=== PATIENT | female | born 1960 | race Caucasian/White ===

== ENCOUNTER 2016-02-10 11:19 | Inpatient (IN) | payer BC ==
[2016-02-10] MEDS ORDERED: IBUPROFEN 600 MG TABLET PO ONE (11:58)
[2016-02-10] MEDS ORDERED: IPRATROPIUM/ALBUTEROL 0.5-2.5 MG/3 ML AMPUL NEB ONE (11:59)
--- NOTE | 2016-02-10 12:00 | ER Document Report ---
ED Medical Screen (RME) - General Chief Complaint: Diarrhea Stated Complaint: POSSIBLE PNEUMONIA Mode of Arrival: Ambulatory Information source: Patient Notes: Patient was referred by urgent care Wednesday and was told to come here today for possible admission. She states she had a temp of 104 orally Wednesday and Wednesday with associated cough, chest tightness, difficulty breathing, headache, diarrhea with incontinence but no nausea or vomiting. She also endorses having GI bug that lasted 2 days prior to this. She has taken prednisone, augmentin, motrin (last dose was last night). The diarrhea was present before taking the augmentin. She did get the flu shot. TRAVEL OUTSIDE OF THE [place] IN LAST 30 DAYS: No - Related Data Allergies/Adverse Reactions: No Known Allergies Allergy (Verified 02/10/16 11:47) Past Medical History - Past Medical History Cardiac Medical History: Reports: Hx Hypertension Pulmonary Medical History: Reports: Hx Asthma Endocrine Medical History: Reports: Hx Diabetes Mellitus Type 2 - Immunizations Immunizations up to date: Yes Review of Systems - Review of Systems Constitutional: See HPI Cardiovascular: See HPI Respiratory: See HPI Gastrointestinal: See HPI Physical Exam - Vital signs Vitals: Temp Pulse Resp BP Pulse Ox 98.4 F 105 H 30 H 139/81 H 95 02/10/16 11:47 02/10/16 11:47 02/10/16 11:47 02/10/16 11:47 02/10/16 11:47 - Notes Notes: General: Ill-appearing, mild tachycardia (105), afebrile, tachypneic (30) CV: tacycardic rate Lungs: Coarse breathing sounds throughout, right worse than left. Course - Re-evaluation Re-evalutation: 02/10/16 12:01 Patient seen and examined. Lungs with coarse breath sounds, rhonchi greater on the right. Ordered motrin, duo neb and lab work/CXR/EKG. - Vital Signs Vital signs: Temp Pulse Resp BP Pulse Ox 98.4 F 105 H 30 H 139/81 H 95 02/10/16 11:47 02/10/16 11:47 02/10/16 11:47 02/10/16 11:47 02/10/16 11:47
[2016-02-10 12:40] LABS: ABSOLUTE LYMPHOCYTES (AUTO) 0.8 10^3/uL (0.5-4.7); ABSOLUTE MONOCYTES (AUTO) 0.5 10^3/uL (0.1-1.4); ABSOLUTE NEUT (AUTO) 3.9 10^3/uL (1.7-8.2); BASOPHILS % (AUTO) 0.5 % (0-2); EOSINOPHILS % (AUTO) 0.2 % (0-6); HEMATOCRIT 36.6 % (36.0-47.0); HEMOGLOBIN 12.4 g/dL (12.0-15.5); HGB HCT DIFFERENCE 0.6; LYMPHOCYTES % (AUTO) 15.7 % (13-45); MEAN CORPUSCULAR HEMOGLOBIN 30.3 pg (27.0-33.4); MEAN CORPUSCULAR HGB CONC 33.9 g/dL (32.0-36.0); MEAN CORPUSCULAR VOLUME 89 fl (80-97); MONOCYTES % (AUTO) 9.2 % (3-13); RED CELL DISTRIBUTION WIDTH 13.2 % (11.5-14.0); SEGMENTED NEUTROPHILS % (AUTO) 74.4 % (42-78); WHITE BLOOD COUNT 5.2 10^3/uL (4.0-10.5)
[2016-02-10 12:59] LABS: ALANINE AMINOTRANSFERASE 97 U/L (9-52); ALBUMIN 3.2 g/dL (3.5-5.0); ALKALINE PHOSPHATASE 109 U/L (38-126); ANION GAP 12 (5-19); ASPARTATE AMINO TRANSFERASE 136 U/L (14-36); BILIRUBIN,TOTAL 0.7 mg/dL (0.2-1.3); BLOOD UREA NITROGEN 3 mg/dL (7-20); CALCIUM 8.9 mg/dL (8.4-10.2); CARBON DIOXIDE 28 mmol/L (22-30); CHLORIDE 102 mmol/L (98-107); CREATININE RESULT 0.44 mg/dL (0.52-1.25); GLUCOSE 161 mg/dL (75-110); LIPASE 104.7 U/L (23-300); POTASSIUM 3.6 mmol/L (3.6-5.0); SODIUM 141.8 mmol/L (137-145); TOTAL PROTEIN 6.7 g/dL (6.3-8.2)
[2016-02-10 13:41] LABS: APPEARANCE,URINE CLEAR; BILIRUBIN,URINE NEGATIVE (NEGATIVE); GLUCOSE, URINE NEGATIVE (NEGATIVE); KETONES,URINE NEGATIVE (NEGATIVE); LEUKOCYTE ESTERASE,URINE NEGATIVE (NEGATIVE); NITRITE,URINE NEGATIVE (NEGATIVE); PROTEIN,URINE NEGATIVE (NEGATIVE); URINE SPECIFIC GRAVITY 1.004; UROBILINOGEN,URINE NEGATIVE mg/dL (<2.0)
--- NOTE | 2016-02-10 15:15 | ER Document Report ---
ED Respiratory Problem <MANNIE CARLSON - Last Filed: 02/10/16 15:19> - General Mode of Arrival: Ambulatory Information source: Patient TRAVEL OUTSIDE OF THE [place] IN LAST 30 DAYS: No - HPI Onset: Other - see above Cough: Productive Sputum amount: Moderate Associated symptoms: Fever, Other - vomiting, diarrhea Similar symptoms previously: Yes Recently seen / treated by doctor: Yes <CARMELITA GIL - Last Filed: 02/10/16 17:01> - General Chief Complaint: Diarrhea Stated Complaint: POSSIBLE PNEUMONIA Notes: Patient is a 55 year old female that presents to the emergency department today with complaints of a cough of a 2.5 week duration. Patient states she was seen four days ago by her PCP (Dr. Kevin Pfeiffer) and was diagnosed with a right sided pneumonia and started on augmentin and prednisone. Patient states she has had 6 doses of augmentin prior to today. Patient states she was re-checked today and was told to come here secondary to worsening pneumonia. Patient has been febrile. (CARMELITA GIL) - Related Data Allergies/Adverse Reactions: No Known Allergies Allergy (Verified 02/10/16 11:47) Home Medications: Current Home Medications Glimepiride [Amaryl 4 mg Tablet] 1 tab PO DAILY 02/10/16 [History] Metformin HCl 1 tab PO BID 02/10/16 [History] Montelukast Sodium 1 tab PO DAILY 02/10/16 [History] Past Medical History - General Information source: Patient Last Menstrual Period: 2012 - Social History Smoking Status: Never Smoker Cigarette use (# per day): No Frequency of alcohol use: Rare Drug Abuse: None Lives with: Family Family History: Reviewed & Not Pertinent Patient has suicidal ideation: No Patient has homicidal ideation: No - Past Medical History Cardiac Medical History: Reports: Hx Hypertension Pulmonary Medical History: Reports: Hx Asthma Endocrine Medical History: Reports: Hx Diabetes Mellitus Type 2 Past Surgical History: Reports: Hx Oral Surgery - Immunizations Immunizations up to date: Yes Hx Diphtheria, Pertussis, Tetanus Vaccination: Yes <CARMELITA GIL - Last Filed: 02/10/16 17:01> Review of Systems - Review of Systems Constitutional: See HPI, Fever EENT: No symptoms reported Cardiovascular: No symptoms reported Respiratory: See HPI, Cough Gastrointestinal: See HPI, Diarrhea, Vomiting Genitourinary: No symptoms reported Female Genitourinary: No symptoms reported Musculoskeletal: No symptoms reported Skin: No symptoms reported Hematologic/Lymphatic: No symptoms reported Neurological/Psychological: No symptoms reported -: Yes All other systems reviewed and negative <CARMELITA GIL - Last Filed: 02/10/16 17:01> Physical Exam - General General appearance: Alert In distress: None - HEENT Head: Normocephalic, Atraumatic Eyes: Normal - Respiratory Respiratory status: No respiratory distress Breath sounds: Wheezing - diffuse expiratory wheeze, tight throughout - Cardiovascular Rhythm: Tachycardia Heart sounds: Normal auscultation - Abdominal Inspection: Obese Distension: No distension Tenderness: Nontender - Extremities General upper extremity: Normal inspection, Nontender. No: Edema General lower extremity: Normal inspection, Nontender. No: Edema - Neurological Neuro grossly intact: Yes Cognition: Normal Orientation: AAOx4 - Psychological Associated symptoms: Normal affect, Normal mood - Skin Skin Temperature: Warm Skin Moisture: Dry Skin Color: Normal <CARMELITA GIL - Last Filed: 02/10/16 17:01> - Vital signs Vitals: Temp Pulse Resp BP Pulse Ox 98.4 F 105 H 30 H 139/81 H 95 02/10/16 11:47 02/10/16 11:47 02/10/16 11:47 02/10/16 11:47 02/10/16 11:47 (MANNIE CARLSON) (CARMELITA GIL) Course - Laboratory Result Diagrams: 02/10/16 12:15 02/10/16 12:15 <MANNIE CARLSON - Last Filed: 02/10/16 15:19> - Laboratory Result Diagrams: 02/10/16 12:15 02/10/16 12:15 <CARMELITA GIL - Last Filed: 02/10/16 17:01> - Re-evaluation Re-evalutation: 02/10/16 15:17 I personally performed the services described in the documentation, reviewed and edited the documentation which was dictated to my scribe in my presence, and it accurately records my words and actions. Patient presents emergency Department chief complaint of cough difficulty breathing. Patient has a history of asthma was diagnosed on Wednesday by her primary care physician with pneumonia without a chest x-ray and placed on Augmentin. Follow-up in the family practice office today worse low oxygen increased wheezing and trouble breathing was sent to the ER for evaluation and possible admission on ED arrival patient was 94% on room air expiratory wheezes no respiratory distress or conversational dyspnea chest x-ray shows bilateral pneumonia. Given Rocephin and Zithromax IV blood cultures were obtained. Breathing treatment you be admitted to the hospital further assessment and evaluation (MANNIE CARLSON) - Vital Signs Vital signs: Temp Pulse Resp BP Pulse Ox 98.0 F 88 20 118/76 94 02/10/16 16:42 02/10/16 16:42 02/10/16 16:42 02/10/16 16:42 02/10/16 16:42 (MANNIE CARLSON) (CARMELITA GIL) - Laboratory Laboratory results interpreted by me: 02/10/16 02/10/16 12:15 12:15 Plt Count 130 L BUN 3 L Creatinine 0.44 L Glucose 161 H AST 136 H ALT 97 H Albumin 3.2 L (MANNIE CARLSON) (CARMELITA GIL) Scribe Documentation - Scribe Written by Delroy:: Delroy Jang, [id number] (02/10/2016) acting as scribe for :: Pj <CARMELITA GIL - Last Filed: 02/10/16 17:01>
[2016-02-10] MEDS ORDERED: CEFTRIAXONE INJ 1000 MG VIAL IV ONE (15:18)
[2016-02-10] MEDS ORDERED: AZITHROMYCIN INJ 500 MG VIAL IV ONE (15:18)
[2016-02-10] MEDS ORDERED: DEXTROSE 50%-WATER 25 GM/50 ML DISP.SYRIN IV PRN ×2 (15:21)
[2016-02-10] MEDS ORDERED: DEXTROSE 40% GEL 15 GM TUBE PO PRN ×2 (15:21)
[2016-02-10] MEDS ORDERED: GLUCAGON,HUMAN RECOMB 1 MG INJ IM PRN (15:21)
[2016-02-10] MEDS ORDERED: POTASSI CL 20 MEQ/1/2NS 1L 1,000 ML IV PRN (15:22)
--- NOTE | 2016-02-10 15:52 | PDOC H&P ---
History of Present Illness Admission Date/PCP: KEVIN FARFAN Patient complains of: Cough, fever History of Present Illness: LEIGHTON Levin CASE is a 55 year old female with past medical history of asthma, diabetes presents with 3 day history of cough, fever, shortness of breath. She gastrointestinal symptoms prior to onset of them. She was seen by Dr. Kevin Farfan 3 days ago and started on Augmentin and prednisone taper but has had no relief of her symptoms. She has had the flu vaccine this year. Medications listed below have not been verified at the time of this documentation. Patient has medications with her and takes: 1. Metformin 500 mg twice daily 2. glimepiride 4 mg daily 3. Singulair 10 mg daily Past Medical History Cardiac Medical History: Reports: Hypertension Pulmonary Medical History: Reports: Asthma Endocrine Medical History: Reports: Diabetes Mellitus Type 2 Past Surgical History Past Surgical History: Reports: Other - Oral surgery, Esure contraceptive device Social History Information Source: Patient Smoking Status: Never Smoker Frequency of Alcohol Use: None Hx Recreational Drug Use: No Hx Prescription Drug Abuse: No - Advance Directive Resuscitation Status: Full Code Family History Family History: CAD - Mother Parental Family History Reviewed: Yes Children Family History Reviewed: Yes Sibling(s) Family History Reviewed.: Yes Medication/Allergy Home Medications: Oxycodone HCl 5 mg PO Q6H #15 tablet 09/06/12 Albuterol Sulfate [Albuterol Sulfate 2.5mg/3 mL] 1 vial IH Q4 PRN #25 vial 12/17 Benzonatate [Tessalon Perles 100 mg Capsule] 100 mg PO Q8HP PRN #40 capsule 10/24 Allergies/Adverse Reactions: No Known Allergies Allergy (Verified 02/10/16 11:47) Review of Systems Constitutional: PRESENT: chills, fatigue, fever(s), weakness. ABSENT: headache( s), weight gain, weight loss Eyes: ABSENT: visual disturbances Ears: ABSENT: hearing changes Cardiovascular: PRESENT: dyspnea on exertion. ABSENT: chest pain, edema, orthropnea, palpitations Respiratory: PRESENT: cough, dyspnea, sputum. ABSENT: hemoptysis Gastrointestinal: ABSENT: abdominal pain, constipation, diarrhea, hematemesis, hematochezia, nausea, vomiting Genitourinary: ABSENT: dysuria, hematuria Musculoskeletal: ABSENT: joint swelling Integumentary: ABSENT: rash, wounds Neurological: ABSENT: abnormal gait, abnormal speech, confusion, dizziness, focal weakness, syncope Psychiatric: ABSENT: anxiety, depression, homidical ideation, suicidal ideation Endocrine: ABSENT: cold intolerance, heat intolerance, polydipsia, polyuria Hematologic/Lymphatic: ABSENT: easy bleeding, easy bruising Physical Exam Vital Signs: Temp Pulse Resp BP Pulse Ox 98.4 F 105 H 30 H 139/81 H 95 02/10/16 11:47 02/10/16 11:47 02/10/16 11:47 02/10/16 11:47 02/10/16 11:47 Intake & Output 02/09/16 02/10/16 02/11/16 06:59 06:59 06:59 Weight 101.5 kg PHYSICAL EXAM: GENERAL: Appears well, no acute distress HEENT: Normocephalic, no scleral icterus, conjunctiva clear, EOEM intact, PERRLA , moist mucous membranes NECK: trachea midline, no thyromegally RESPIRATORY: Bilateral anterior rhonchi, good air movement CARDIAC: Regular rate and rhythm, no murmur/cornelius/rub ABDOMEN: Soft, no distension, no tenderness, no guarding, normal bowel sounds, negative Mittal sign RECTAL: deferred : deferred EXTREMITIES: No edema, cyanosis, clubbing MUSCULOSKELETAL: No joint swelling or deformity VASCULAR: normal peripheral pulses NEUROLOGIC: Alert, oriented to person/place/time, normal speech, cranial nerves grossly intact, 5/5 strength in all extremities, tactile sensation intact in all extremities SKIN: No rash, no wounds, no worrisome skin lesions PSYCHIATRIC: Normal mood, normal affect Results Laboratory Results: 02/10/16 12:15 02/10/16 12:15 02/10/16 02/10/16 02/10/16 12:15 12:15 12:15 WBC 5.2 RBC 4.10 Hgb 12.4 Hct 36.6 MCV 89 MCH 30.3 MCHC 33.9 RDW 13.2 Plt Count 130 L Seg Neutrophils % 74.4 Lymphocytes % 15.7 Monocytes % 9.2 Eosinophils % 0.2 Basophils % 0.5 Absolute Neutrophils 3.9 Absolute Lymphocytes 0.8 Absolute Monocytes 0.5 Absolute Eosinophils 0.0 Absolute Basophils 0.0 Sodium 141.8 Potassium 3.6 Chloride 102 Carbon Dioxide 28 Anion Gap 12 BUN 3 L Creatinine 0.44 L Est GFR ( Amer) > 60 Est GFR (Non-Af Amer) > 60 Glucose 161 H Lactic Acid 2.0 Calcium 8.9 Total Bilirubin 0.7 AST 136 H ALT 97 H Alkaline Phosphatase 109 Total Protein 6.7 Albumin 3.2 L Lipase 104.7 Urine Color Urine Appearance Urine pH Ur Specific [place] Urine Protein Urine Glucose (UA) Urine Ketones Urine Blood Urine Nitrite Ur Leukocyte Esterase Urine RBC (Auto) 02/10/16 13:25 WBC RBC Hgb Hct MCV MCH MCHC RDW Plt Count Seg Neutrophils % Lymphocytes % Monocytes % Eosinophils % Basophils % Absolute Neutrophils Absolute Lymphocytes Absolute Monocytes Absolute Eosinophils Absolute Basophils Sodium Potassium Chloride Carbon Dioxide Anion Gap BUN Creatinine Est GFR ( Amer) Est GFR (Non-Af Amer) Glucose Lactic Acid Calcium Total Bilirubin AST ALT Alkaline Phosphatase Total Protein Albumin Lipase Urine Color STRAW Urine Appearance CLEAR Urine pH 7.0 Ur Specific [place] 1.004 Urine Protein NEGATIVE Urine Glucose (UA) NEGATIVE Urine Ketones NEGATIVE Urine Blood NEGATIVE Urine Nitrite NEGATIVE Ur Leukocyte Esterase NEGATIVE Urine RBC (Auto) 0 Impressions: Chest X-Ray 02/10/16 11:58 IMPRESSION: Patchy bilateral pneumonic infiltrates as noted above. Assessment & Plan - Diagnosis (1) Bilateral pneumonia Qualifiers: Pneumonia type: due to unspecified organism Lung location: unspecified part of lung Qualified Code(s): J18.9 - Pneumonia, unspecified organism Is this a current diagnosis for this admission?: YesPlan: Likely bacterial. Influenza screen negative. Patient failed outpatient Augmentin. Start IV Levaquin. Check sputum culture and blood culture. (2) Diabetes Qualifiers: Diabetes mellitus type: type 2 Diabetes mellitus complication status: without complication Diabetes mellitus chcf insulin use: without watermelon inspector use Qualified Code(s): E11.9 - Type 2 diabetes mellitus without complications Is this a current diagnosis for this admission?: YesPlan: Hold metformin. Continue glimepiride. Sliding scale insulin. (3) Asthma Is this a current diagnosis for this admission?: Yes (4) Thrombocytopenia Is this a current diagnosis for this admission?: YesPlan: Likely secondary to infection. Avoid aggravating medications. (5) Elevated liver function tests Is this a current diagnosis for this admission?: YesPlan: Likely secondary to infection. Hydrate patient and repeat liver function tests. - Time Time Spent: Greater than 70 Minutes
[2016-02-10] MEDS ORDERED: LEVOFLOXACIN 750 MG/D5W RTU 750 MG/150 ML RTUPB IV ONE ×2 (16:30→21:00)
[2016-02-10] MEDS: ALBUTEROL SULFATE 0.083% NEB 2.5 MG/3 ML AMPUL NEB PRN (21:31)
--- NOTE | 2016-02-10 21:58 | EKG REPORT ---
SEVERITY:- OTHERWISE NORMAL ECG - SINUS TACHYCARDIA : Confirmed by: Ameya Grady 10-Feb-2016 21:57:48
[2016-02-10] MEDS: GUAIFENESIN 600 MG TABLET.SA PO SCH (22:02)
[2016-02-11] MEDS: ALBUTEROL SULFATE 0.083% NEB 2.5 MG/3 ML AMPUL NEB PRN ×3 (02:44→20:08)
[2016-02-11 07:06] LABS: ABSOLUTE NEUT (AUTO) 3.3 10^3/uL (1.7-8.2); BASOPHILS % (AUTO) 0.5 % (0-2); EOSINOPHILS % (AUTO) 0.3 % (0-6); LYMPHOCYTES % (AUTO) 32.1 % (13-45); MEAN CORPUSCULAR HEMOGLOBIN 30.7 pg (27.0-33.4); MEAN CORPUSCULAR HGB CONC 34.2 g/dL (32.0-36.0); MEAN CORPUSCULAR VOLUME 90 fl (80-97); MONOCYTES % (AUTO) 15.2 % (3-13); SEGMENTED NEUTROPHILS % (AUTO) 51.9 % (42-78); WHITE BLOOD COUNT 6.3 10^3/uL (4.0-10.5)
[2016-02-11 07:07] LABS: ALANINE AMINOTRANSFERASE 88 U/L (9-52); ALBUMIN 2.8 g/dL (3.5-5.0); ALKALINE PHOSPHATASE 66 U/L (38-126); ANION GAP 11 (5-19); ASPARTATE AMINO TRANSFERASE 138 U/L (14-36); BLOOD UREA NITROGEN 3 mg/dL (7-20); CALCIUM 8.4 mg/dL (8.4-10.2); CARBON DIOXIDE 26 mmol/L (22-30); CHLORIDE 102 mmol/L (98-107); CREATININE RESULT 0.43 mg/dL (0.52-1.25); GLUCOSE 87 mg/dL (75-110); POTASSIUM 3.7 mmol/L (3.6-5.0); SODIUM 138.5 mmol/L (137-145); TOTAL PROTEIN 6.5 g/dL (6.3-8.2)
[2016-02-11] MEDS: ACETAMINOPHEN 325 MG TABLET PO PRN (07:43)
[2016-02-11] MEDS: FONDAPARINUX SODIUM INJ 2.5 MG/0.5 ML DISP.SYRIN SUBCUT SCH (10:14)
[2016-02-11] MEDS: GUAIFENESIN 600 MG TABLET.SA PO SCH ×2 (10:18→21:56)
[2016-02-11] MEDS: METFORMIN HCL 500 MG TABLET PO SCH ×2 (10:18→17:52)
[2016-02-11] MEDS: GLIMEPIRIDE 4 MG TABLET PO SCH (10:18)
[2016-02-11] MEDS ORDERED: IBUPROFEN 600 MG TABLET PO PRN (11:12)
[2016-02-11] MEDS ORDERED: ACETYLCYSTEINE 20% SOLN 800 MG/4 ML VIAL.NEB NEB PRN (11:42)
[2016-02-11] MEDS ORDERED: LACTOBACILLUS ACIDOPHILUS 250 MG TAB PO ONE (12:00)
[2016-02-11] MEDS ORDERED: METHYLPREDNISOLONE INJ 125 MG/2 ML SDV IV ONE (12:00)
[2016-02-11] MEDS: METHYLPREDNISOLONE INJ 125 MG/2 ML SDV IV SCH ×2 (15:04→21:56)
[2016-02-11] MEDS: LEVOFLOXACIN 750 MG/D5W RTU 750 MG/150 ML RTUPB IV SCH (17:52)
[2016-02-11] MEDS: LACTOBACILLUS ACIDOPHILUS 250 MG TAB PO SCH (17:52)
[2016-02-11] MEDS: INSULIN LISPRO 100 UNIT/ML 3 ML VIAL SUBCUT PRN ×2 (18:00→21:56)
[2016-02-11] MEDS ORDERED: VANCOMYCIN HCL 0 MG in DEXTROSE 5%-WATER 250 ML IV NR (18:15)
[2016-02-11] MEDS ORDERED: ACYCLOVIR 800 MG TABLET PO SCH ×2 (19:00)
[2016-02-11] MEDS: ACYCLOVIR 200 MG CAPSULE PO SCH (19:42)
[2016-02-11] MEDS ORDERED: ACETYLCYSTEINE 20% SOLN 800 MG/4 ML VIAL.NEB NEB SCH (20:00)
[2016-02-11] MEDS: VANCOMYCIN HCL 1,500 MG in DEXTROSE 5%-WATER 250 ML IV SCH (21:56)
[2016-02-11] MEDS: MONTELUKAST SODIUM 10 MG TABLET PO SCH (21:56)
[2016-02-12] MEDS: ACYCLOVIR 200 MG CAPSULE PO SCH ×5 (06:39→18:46)
[2016-02-12] MEDS: METHYLPREDNISOLONE INJ 125 MG/2 ML SDV IV SCH ×2 (06:39→15:19)
[2016-02-12] MEDS: ALBUTEROL SULFATE 0.083% NEB 2.5 MG/3 ML AMPUL NEB PRN ×3 (06:43→19:24)
[2016-02-12] MEDS: INSULIN LISPRO 100 UNIT/ML 3 ML VIAL SUBCUT PRN ×3 (07:44→16:57)
[2016-02-12] MEDS: FONDAPARINUX SODIUM INJ 2.5 MG/0.5 ML DISP.SYRIN SUBCUT SCH (07:44)
[2016-02-12] MEDS: METFORMIN HCL 500 MG TABLET PO SCH ×2 (09:07→17:47)
[2016-02-12] MEDS: GLIMEPIRIDE 4 MG TABLET PO SCH (09:07)
[2016-02-12] MEDS: VANCOMYCIN HCL 1,500 MG in DEXTROSE 5%-WATER 250 ML IV SCH ×2 (09:07→22:23)
[2016-02-12] MEDS: GUAIFENESIN 600 MG TABLET.SA PO SCH ×2 (09:08→22:22)
[2016-02-12] MEDS: LACTOBACILLUS ACIDOPHILUS 250 MG TAB PO SCH ×2 (09:08→17:46)
[2016-02-12] MEDS ORDERED: ACETYLCYSTEINE 20% SOLN 800 MG/4 ML VIAL.NEB NEB PRN (09:30)
[2016-02-12] MEDS: BENZONATATE 100 MG CAPSULE PO PRN (11:42)
[2016-02-12] MEDS: LOPERAMIDE HCL 2 MG CAPSULE PO PRN (16:57)
[2016-02-12] MEDS: LEVOFLOXACIN 750 MG/D5W RTU 750 MG/150 ML RTUPB IV SCH (17:47)
[2016-02-12] MEDS: ACETYLCYSTEINE 20% SOLN 800 MG/4 ML VIAL.NEB NEB SCH (19:24)
[2016-02-12] MEDS: MONTELUKAST SODIUM 10 MG TABLET PO SCH (22:22)
--- NOTE | 2016-02-12 22:58 | PDOC PROGRESS REPORT ---
Subjective Progress Note for:: 02/11/16 Subjective:: Patient denies abdominal pain, nausea, vomiting, constipation, headache, new onset weakness. Patient midst of shortness of breath, pleuritic-type chest pain , diarrhea and fever/chills. She reports fever chills at home up to 103. She does report a flulike illness prior to presentation. Physical Exam Vital Signs: Temp Pulse Resp BP Pulse Ox 99.7 F 106 H 22 H 121/60 92 02/11/16 08:08 02/11/16 08:08 02/11/16 08:08 02/11/16 08:08 02/11/16 08:08 Intake & Output 02/10/16 02/11/16 02/12/16 06:59 06:59 06:59 Intake Total 1785 Balance 1785 Weight 96.9 kg Exam: General: Awake alert and oriented 3, mild respiratory distress, acutely ill- appearing HEENT: AT/NC, PERRL, EOMI, oropharynx is moist, pink, no scleral icterus, no conjunctival injection Neck: No JVD, trachea midline Chest: Wheezes and rhonchi diffusely bilaterally CV: Regular rate and rhythm, normal S1 and S2, no murmur, rub, or gallop Abdomen: Soft, nontender to palpation, nondistended, active bowel sounds; no rebound, rigidity, or guarding Extremities: No cyanosis, clubbing or edema Neuro: Cranial nerves II through XII are grossly intact without focal deficits; awake alert and oriented 3 Psych: Normal mood and affect Results Laboratory Results: 02/11/16 06:20 02/11/16 06:20 02/11/16 02/11/16 06:20 06:20 WBC 6.3 RBC 3.90 Hgb 12.0 Hct 35.0 L MCV 90 MCH 30.7 MCHC 34.2 RDW 13.0 Plt Count 125 L Seg Neutrophils % 51.9 Lymphocytes % 32.1 Monocytes % 15.2 H Eosinophils % 0.3 Basophils % 0.5 Absolute Neutrophils 3.3 Absolute Lymphocytes 2.0 Absolute Monocytes 1.0 Absolute Eosinophils 0.0 Absolute Basophils 0.0 Sodium 138.5 Potassium 3.7 Chloride 102 Carbon Dioxide 26 Anion Gap 11 BUN 3 L Creatinine 0.43 L Est GFR ( Amer) > 60 Est GFR (Non-Af Amer) > 60 Glucose 87 Calcium 8.4 Total Bilirubin 1.0 AST 138 H ALT 88 H Alkaline Phosphatase 66 Total Protein 6.5 Albumin 2.8 L Impressions: Chest X-Ray 02/10/16 11:58 IMPRESSION: Patchy bilateral pneumonic infiltrates as noted above. Assessment & Plan - Diagnosis (1) Acute hypoxemic respiratory failure Is this a current diagnosis for this admission?: YesPlan: Continue oxygen as needed wean as tolerated (2) Asthma exacerbation Is this a current diagnosis for this admission?: YesPlan: We'll transition patient to IV Solu-Medrol. Stop oral prednisone (3) Herpes simplex labialis Is this a current diagnosis for this admission?: YesPlan: Begin patient on acyclovir 400 mg by mouth 5 times daily (4) Bilateral pneumonia Qualifiers: Pneumonia type: due to unspecified organism Lung location: unspecified part of lung Qualified Code(s): J18.9 - Pneumonia, unspecified organism Is this a current diagnosis for this admission?: YesPlan: At this time, am concerned about this patient as she describes somewhat of a viral type illness in the weeks preceding this presentation. Will begin patient on vancomycin for possible MRSA. Full and was negative. (5) Diabetes Qualifiers: Diabetes mellitus type: type 2 Diabetes mellitus complication status: without complication Diabetes mellitus halfway insulin use: without halfway use Qualified Code(s): E11.9 - Type 2 diabetes mellitus without complications Is this a current diagnosis for this admission?: YesPlan: Continue patient on sliding scale and glimepiride. Concern for patient's metformin given her underlying diarrhea. Consider Lantus sugar elevates (6) Elevated liver function tests Is this a current diagnosis for this admission?: Yes (7) Thrombocytopenia Is this a current diagnosis for this admission?: YesPlan: Continue to monitor. On Arixtra (8) Morbid obesity Qualifiers: Obesity type: due to excess calories Qualified Code(s): E66.01 - Morbid (severe) obesity due to excess calories Is this a current diagnosis for this admission?: Yes (9) Diarrhea Qualifiers: Diarrhea type: unspecified type Qualified Code(s): R19.7 - Diarrhea , unspecified Is this a current diagnosis for this admission?: YesPlan: We'll check C. difficile - Time Time Spent with patient: 25-34 minutes Medications reviewed and adjusted accordingly: Yes
[2016-02-12] MEDS ORDERED: PHARMACY COMMUNICATION ORDER MC NR (23:00)
--- NOTE | 2016-02-12 23:03 | PDOC PROGRESS REPORT ---
Subjective Progress Note for:: 02/12/16 Subjective:: Patient reports minimal 5 stools today. Patient is noted become quite tachycardic when she ambulates. She reports she's feeling significantly better. She reports her herpes simplex is improved. Patient is quite actively doing her incentive spirometry and flutter valve. Patient denies chest pain, abdominal pain, nausea, vomiting, fevers, chills, constipation, headache, new onset weakness. Physical Exam Vital Signs: Temp Pulse Resp BP Pulse Ox 98.0 F 112 H 17 125/76 94 02/12/16 19:57 02/12/16 19:57 02/12/16 19:57 02/12/16 19:57 02/12/16 19:57 Intake & Output 02/11/16 02/12/16 02/13/16 06:59 06:59 06:59 Intake Total 1785 3136 1260 Balance 1785 3136 1260 Weight 96.9 kg 96.9 kg Results Laboratory Results: 02/11/16 06:20 02/11/16 06:20 Impressions: Chest X-Ray 02/10/16 11:58 IMPRESSION: Patchy bilateral pneumonic infiltrates as noted above. Assessment & Plan - Diagnosis (1) Acute hypoxemic respiratory failure Is this a current diagnosis for this admission?: YesPlan: Continue to wean oxygen as tolerated. Patient does not tolerate being off oxygen she does become quite tachycardic in the 140s. (2) Asthma exacerbation Is this a current diagnosis for this admission?: YesPlan: Decrease amount of IV Solu-Medrol. (3) Bilateral pneumonia Qualifiers: Pneumonia type: due to unspecified organism Lung location: unspecified part of lung Qualified Code(s): J18.9 - Pneumonia, unspecified organism Is this a current diagnosis for this admission?: YesPlan: Continue vancomycin and Levaquin. Continue scheduled nebulized treatments and aggressive pulmonary toileting. Sputum specimen currently growing out gram- positive cocci. (4) Diabetes Qualifiers: Diabetes mellitus type: type 2 Diabetes mellitus complication status: without complication Diabetes mellitus assisted insulin use: without assisted use Qualified Code(s): E11.9 - Type 2 diabetes mellitus without complications Is this a current diagnosis for this admission?: YesPlan: Increase metformin once diarrhea has has resolved. Add Januvia and Lantus. Check hemoglobin A1c. (5) Diarrhea Qualifiers: Diarrhea type: unspecified type Qualified Code(s): R19.7 - Diarrhea , unspecified Is this a current diagnosis for this admission?: YesPlan: C. difficile is negative. Loperamide when necessary (6) Elevated liver function tests Is this a current diagnosis for this admission?: YesPlan: We'll check an FLP for concerns for [place]. Check hepatitis panel given patient' s age. (7) Herpes simplex labialis Is this a current diagnosis for this admission?: YesPlan: Improving continue acyclovir (8) Morbid obesity Qualifiers: Obesity type: due to excess calories Qualified Code(s): E66.01 - Morbid (severe) obesity due to excess calories Is this a current diagnosis for this admission?: Yes (9) Thrombocytopenia Is this a current diagnosis for this admission?: YesPlan: Continue to monitor. On Arixtra - Time Time Spent with patient: 25-34 minutes Medications reviewed and adjusted accordingly: Yes
[2016-02-13] MEDS: METHYLPREDNISOLONE INJ 125 MG/2 ML SDV IV SCH ×2 (00:07→05:44)
[2016-02-13] MEDS: INSULIN LISPRO 100 UNIT/ML 3 ML VIAL SUBCUT PRN ×5 (00:13→22:22)
[2016-02-13] MEDS: BENZONATATE 100 MG CAPSULE PO PRN ×2 (05:44→20:36)
[2016-02-13] MEDS: ACYCLOVIR 200 MG CAPSULE PO SCH ×5 (06:20→18:17)
[2016-02-13 07:32] LABS: ABSOLUTE LYMPHOCYTES (AUTO) 0.9 10^3/uL (0.5-4.7); ABSOLUTE MONOCYTES (AUTO) 0.3 10^3/uL (0.1-1.4); HEMATOCRIT 36.2 % (36.0-47.0); HEMOGLOBIN 12.3 g/dL (12.0-15.5); HGB HCT DIFFERENCE 0.7; LYMPHOCYTES % (AUTO) 9.5 % (13-45); MEAN CORPUSCULAR VOLUME 88 fl (80-97); MONOCYTES % (AUTO) 3.8 % (3-13); RED CELL DISTRIBUTION WIDTH 13.1 % (11.5-14.0); SEGMENTED NEUTROPHILS % (AUTO) 86.7 % (42-78); WHITE BLOOD COUNT 9.2 10^3/uL (4.0-10.5)
[2016-02-13 07:50] LABS: ALANINE AMINOTRANSFERASE 74 U/L (9-52); ALBUMIN 3.7 g/dL (3.5-5.0); ALKALINE PHOSPHATASE 93 U/L (38-126); ANION GAP 10 (5-19); ASPARTATE AMINO TRANSFERASE 65 U/L (14-36); BILIRUBIN,TOTAL 0.8 mg/dL (0.2-1.3); BLOOD UREA NITROGEN 13 mg/dL (7-20); CALCIUM 10.1 mg/dL (8.4-10.2); CARBON DIOXIDE 30 mmol/L (22-30); CHLORIDE 101 mmol/L (98-107); CHOLESTEROL 133.57 mg/dL (0-200); CREATININE RESULT 0.47 mg/dL (0.52-1.25); Direct HDL 21 mg/dL (>40); GLUCOSE 300 mg/dL (75-110); POTASSIUM 4.6 mmol/L (3.6-5.0); SODIUM 141.3 mmol/L (137-145); TRIGLYCERIDES 117 mg/dL (<150)
[2016-02-13] MEDS: ALBUTEROL SULFATE 0.083% NEB 2.5 MG/3 ML AMPUL NEB PRN ×2 (07:55→19:50)
[2016-02-13] MEDS: ACETYLCYSTEINE 20% SOLN 800 MG/4 ML VIAL.NEB NEB SCH ×2 (07:55→19:50)
[2016-02-13] MEDS ORDERED: INSULIN GLARGINE,HUM.REC.ANLOG 1,000 UNIT/10 ML UNIT SUBCUT SCH (08:00)
[2016-02-13 08:01] LABS: DIRECT LDL 85 mg/dL (<100); PREALBUMIN 9.9 mg/dL (17.6-36.0)
[2016-02-13] MEDS: SITAGLIPTIN PHOSPHATE 50 MG TABLET PO SCH ×2 (08:09→16:48)
[2016-02-13] MEDS: INSULIN LISPRO 100 UNIT/ML 3 ML VIAL SUBCUT SCH ×3 (08:10→17:39)
[2016-02-13] MEDS: FONDAPARINUX SODIUM INJ 2.5 MG/0.5 ML DISP.SYRIN SUBCUT SCH (08:11)
[2016-02-13 08:47] LABS: CREATININE RESULT 0.47 mg/dL (0.52-1.25)
[2016-02-13] MEDS: LACTOBACILLUS ACIDOPHILUS 250 MG TAB PO SCH ×2 (09:43→17:41)
[2016-02-13] MEDS: METFORMIN HCL 500 MG TABLET PO SCH ×2 (09:43→17:41)
[2016-02-13] MEDS: GUAIFENESIN 600 MG TABLET.SA PO SCH ×2 (09:43→21:51)
[2016-02-13] MEDS: GLIMEPIRIDE 4 MG TABLET PO SCH (09:43)
[2016-02-13] MEDS: LEVOFLOXACIN 750 MG TABLET PO SCH (09:44)
[2016-02-13] MEDS: VANCOMYCIN HCL 1,500 MG in DEXTROSE 5%-WATER 250 ML IV SCH (11:07)
[2016-02-13] MEDS: LOPERAMIDE HCL 2 MG CAPSULE PO PRN (14:01)
[2016-02-13] MEDS: PREDNISONE 20 MG TABLET PO SCH (17:41)
[2016-02-13] MEDS ORDERED: ALPRAZOLAM 0.25 MG TABLET PO PRN (19:22)
--- NOTE | 2016-02-13 19:26 | PDOC PROGRESS REPORT ---
Subjective Progress Note for:: 02/13/16 Subjective:: Patient reports ongoing diarrhea. Patient reports she's not sleeping well and recently received news of the in the family. She reports she's feeling significantly better. She reports her herpes simplex is improved. Patient is quite actively doing her incentive spirometry and flutter valve. Patient denies chest pain, abdominal pain, nausea, vomiting, fevers, chills, constipation, headache, new onset weakness. Physical Exam Vital Signs: Temp Pulse Resp BP Pulse Ox 97.4 F 82 18 117/58 L 93 02/13/16 04:12 02/13/16 04:12 02/13/16 04:12 02/13/16 04:12 02/13/16 04:12 Intake & Output 02/12/16 02/13/16 02/14/16 06:59 06:59 06:59 Intake Total 3136 2660 Balance 3136 2660 Weight 96.9 kg 96.9 kg Exam: General: Awake alert and oriented 3, no acute respiratory distress HEENT: AT/NC, PERRL, EOMI, oropharynx is moist, pink, no scleral icterus, no conjunctival injection, herpes labialis Neck: No JVD, trachea midline Chest: Clear to auscultation bilaterally CV: Regular rate and rhythm, normal S1 and S2, no murmur, rub, or gallop Abdomen: Soft, nontender to palpation, nondistended, active bowel sounds; no rebound, rigidity, or guarding Extremities: No cyanosis, clubbing or edema Neuro: Cranial nerves II through XII are grossly intact without focal deficits; awake alert and oriented 3 Psych: Occasionally tearful Results Laboratory Results: 02/13/16 06:57 02/13/16 06:57 WBC 9.2 RBC 4.10 Hgb 12.3 Hct 36.2 MCV 88 MCH 30.0 MCHC 34.0 RDW 13.1 Plt Count 160 Seg Neutrophils % 86.7 H Lymphocytes % 9.5 L Monocytes % 3.8 Eosinophils % 0.0 Basophils % 0.0 Absolute Neutrophils 8.0 Absolute Lymphocytes 0.9 Absolute Monocytes 0.3 Absolute Eosinophils 0.0 Absolute Basophils 0.0 02/11/16 12:37 Clean Catch Midstream Legionella Urinary Antigen - Final Assessment & Plan - Diagnosis (1) Acute hypoxemic respiratory failure Is this a current diagnosis for this admission?: YesPlan: Nearly completely off oxygen. (2) Asthma exacerbation Is this a current diagnosis for this admission?: YesPlan: Transition to oral prednisone today. Doing this will tomorrow will discharge home. 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 Add Januvia and Lantus. Check hemoglobin A1c. (5) Diarrhea Qualifiers: Diarrhea type: unspecified type Qualified Code(s): R19.7 - Diarrhea , unspecified Is this a current diagnosis for this admission?: Yes (6) Elevated liver function tests Is this a current diagnosis for this admission?: YesPlan: Currently pending hepatitis and FLP. Concern for Burch. (7) Herpes simplex labialis Is this a current diagnosis for this admission?: YesPlan: Improving continue acyclovir (8) Morbid obesity Qualifiers: Obesity type: due to excess calories Qualified Code(s): E66.01 - Morbid (severe) obesity due to excess calories Is this a current diagnosis for this admission?: Yes (9) Thrombocytopenia Is this a current diagnosis for this admission?: Yes (10) Insomnia Qualifiers: Insomnia type: unspecified Qualified Code(s): G47.00 - Insomnia, unspecified Is this a current diagnosis for this admission?: YesPlan: Trazodone when necessary sleep (11) acute grief reaction Is this a current diagnosis for this admission?: YesPlan: Small amount of Xanax twice a day when necessary - Time Time Spent with patient: 35 or more minutes Medications reviewed and adjusted accordingly: Yes Anticipated discharge: Home Within: within 24 hours
[2016-02-13] MEDS: MONTELUKAST SODIUM 10 MG TABLET PO SCH (21:51)
[2016-02-13] MEDS ORDERED: TRAZODONE HCL 50 MG TABLET PO SCH (22:00)
[2016-02-14] MEDS: ACYCLOVIR 200 MG CAPSULE PO SCH ×3 (06:25→12:40)
[2016-02-14] MEDS: ACETYLCYSTEINE 20% SOLN 800 MG/4 ML VIAL.NEB NEB SCH (07:54)
[2016-02-14] MEDS: ALBUTEROL SULFATE 0.083% NEB 2.5 MG/3 ML AMPUL NEB PRN (07:55)
[2016-02-14] MEDS ORDERED: INSULIN GLARGINE,HUM.REC.ANLOG 300 UNIT/3 ML INSULN.PEN SUBCUT SCH (08:00)
[2016-02-14] MEDS: FONDAPARINUX SODIUM INJ 2.5 MG/0.5 ML DISP.SYRIN SUBCUT SCH (08:40)
[2016-02-14] MEDS: SITAGLIPTIN PHOSPHATE 50 MG TABLET PO SCH (08:40)
[2016-02-14] MEDS: BENZONATATE 100 MG CAPSULE PO PRN (08:42)
[2016-02-14] MEDS: ACETAMINOPHEN 325 MG TABLET PO PRN (08:43)
[2016-02-14] MEDS: INSULIN LISPRO 100 UNIT/ML 3 ML VIAL SUBCUT SCH ×2 (08:43→12:01)
[2016-02-14] MEDS ORDERED: FUROSEMIDE 20 MG TABLET PO ONE (10:30)
[2016-02-14] MEDS ORDERED: PREDNISONE 20 MG TABLET PO ONE (10:30)
[2016-02-14] MEDS: LACTOBACILLUS ACIDOPHILUS 250 MG TAB PO SCH (10:52)
[2016-02-14] MEDS: PREDNISONE 20 MG TABLET PO SCH (10:52)
[2016-02-14] MEDS: LEVOFLOXACIN 750 MG TABLET PO SCH (10:53)
[2016-02-14] MEDS: GUAIFENESIN 600 MG TABLET.SA PO SCH (10:53)
[2016-02-14] MEDS: GLIMEPIRIDE 4 MG TABLET PO SCH (10:53)
[2016-02-14] MEDS: METFORMIN HCL 500 MG TABLET PO SCH (10:53)
[2016-02-14 13:26] VITALS: BP 105/60
--- NOTE | 2016-02-15 14:45 | PDOC DISCHARGE SUMMARY ---
General - Admit/Disc Date/PCP Admission Date/Primary Care Provider: 02/10/16 15:22 AV FARFAN Discharge Date: 02/15/16 - Discharge Diagnosis (1) Acute hypoxemic respiratory failure Is this a current diagnosis for this admission?: Yes (2) Asthma exacerbation Is this a current diagnosis for this admission?: Yes (3) Bilateral pneumonia Is this a current diagnosis for this admission?: Yes (4) Diabetes Is this a current diagnosis for this admission?: Yes (5) Diarrhea Is this a current diagnosis for this admission?: Yes (6) Elevated liver function tests Is this a current diagnosis for this admission?: Yes (7) Herpes simplex labialis Is this a current diagnosis for this admission?: Yes (8) Thrombocytopenia Is this a current diagnosis for this admission?: Yes (9) Insomnia Is this a current diagnosis for this admission?: Yes (10) acute grief reaction Is this a current diagnosis for this admission?: Yes (11) Morbid obesity Is this a current diagnosis for this admission?: Yes - Additional Information Resuscitation Status: Full Code Discharge Diet: Cardiac, Diabetic Discharge Activity: Activity As Tolerated Home Medications: Glimepiride [Amaryl 4 mg Tablet] 1 tab PO DAILY 02/10/16 Montelukast Sodium 1 tab PO DAILY 02/10/16 Acyclovir [Zovirax 200 mg Capsule] 400 mg PO 5XD #15 capsule 02/14/16 Albuterol Sulfate [Ventolin HFA MDI 18 GM] 1 - 2 puff IH Q4H PRN #1 mdi Benzonatate [Tessalon Perles 100 mg Capsule] 100 mg PO Q8HP PRN #10 capsule 07/25 Ciprofloxacin HCl [Cipro 500 mg Tablet] 500 mg PO BID #12 tablet 02/14/16 Guaifenesin [Mucinex Sr 600 mg Tablet.sa] 1,200 mg PO Q12 #20 tablet.sa Metformin HCl 1,000 mg PO BID #120 tablet 02/14/16 Prednisone [Deltasone 20 mg Tablet] 60 mg PO DAILY #18 tablet 02/14/16 Sitagliptin Phosphate [Januvia 50 mg Tablet] 50 mg PO BIDACBS #60 tablet Trazodone HCl [Desyrel 50 mg Tablet] 50 mg PO QHS #14 tablet 02/14/16 History of Present Illness History of Present Illness: LEIGHTON Levin CASE is a 55 year old female Hospital Course Hospital Course: Patient was started initially on oral prednisone and required transition to solumedrol for several days. Patient continued to improve slowly. Developed herpes labialis which was treated with acyclovir. patient insomnia treated with trazodone. Discussed with patient her morbid obesity and the need for her to exercise and improve her diet. On day of discharge, patient was doing well with without complaints. Have advised patient to receive letter to return back to work from her primary care physician. Physical Exam Vital Signs: Temp Pulse Resp BP Pulse Ox 98 F 103 H 16 105/60 95 02/14/16 13:49 02/14/16 13:49 02/14/16 13:49 02/14/16 13:49 02/14/16 13:49 Intake & Output 02/14/16 02/15/16 02/16/16 06:59 06:59 06:59 Intake Total 1340 Balance 1340 Weight 96.9 kg Exam: General: Awake alert and oriented 3, no acute distress HEENT: AT/NC, PERRL, EOMI, oropharynx is moist, pink, no scleral icterus, no conjunctival injection Neck: No JVD, trachea midline Chest: CTAB CV: Regular rate and rhythm, normal S1 and S2, no murmur, rub, or gallop Abdomen: Soft, nontender to palpation, nondistended, active bowel sounds; no rebound, rigidity, or guarding Extremities: No cyanosis, clubbing or edema Neuro: Cranial nerves II through XII are grossly intact without focal deficits; awake alert and oriented 3 Psych: Normal mood and affect Results Laboratory Results: 02/13/16 06:57 02/13/16 06:57 Impressions: Chest X-Ray 02/13/16 06:00 IMPRESSION: Decrease in bilateral airspace disease compared to 02/10/2016. No pneumothorax or pleural effusions Qualifiers PATEINT BEING DISCHARGED WITH ANY OF THE FOLLOWING DIAGNOSIS?: No Plan Time Spent: Less than 30 Minutes
== END 2016-02-14 16:24 | disposition home or self-care (01) | DRG 193 ==
LOC: ER 11:19 → EH 15:22 → UNDOADMIN 15:29 → EH 15:29 → 5 17:19
PROVIDERS: ADMIT Family Medicine; ATTEND Family Medicine
PROC: 3E0F73Z Introduction of Anti-inflammatory into Respiratory Tract, Via Natural or Artificial Opening (ICD-10-PCS; principal; 2016-02-10)
DX: J18.9 Pneumonia, unspecified organism (principal); J96.01 Acute respiratory failure with hypoxia; J45.901 Unspecified asthma with (acute) exacerbation; Z68.41 Body mass index [BMI] 40.0-44.9, adult; E11.9 Type 2 diabetes mellitus without complications; I10 Essential (primary) hypertension; D69.6 Thrombocytopenia, unspecified; B00.1 Herpesviral vesicular dermatitis; E66.01 Morbid (severe) obesity due to excess calories; R19.7 Diarrhea, unspecified; G47.00 Insomnia, unspecified; F43.20 Adjustment disorder, unspecified; Z82.49 Family history of ischemic heart disease and other diseases of the circulatory system
CPT/HCPCS: 36415; 71020; 80053; 80061; 80074; 80202; 81001; 82565; 82962; 83036; 83605; 83690; 84134; 85025; 87040; 87070; 87205; 87493; 87804; 93005; 93010; 94640; 94667; 94799; 99285; J0456; J0696; J1652; J1815; J1956; J2930; J3370; J3480; J3490; J7060; J7512; J7620

== ENCOUNTER 2016-03-09 05:46 | Emergency (ER) | payer BC ==
--- NOTE | 2016-03-09 07:16 | ER Document Report ---
ED GI/ - General Chief Complaint: Vaginal Pain Stated Complaint: URINARY ISSUES Time seen by provider: 07:16 Mode of Arrival: Ambulatory Information source: Patient Notes: 56 yo diabetic female with vaignal perianal irritation, rash. Hx herpes 10 years ago. It started 3 weeks ago when she was hospitalized for pneumonia. No fever. Painful urination rue to the skin irritation. No pelvic or abdominal pain. No fever. TRAVEL OUTSIDE OF THE [place] IN LAST 30 DAYS: No - Related Data Allergies/Adverse Reactions: No Known Allergies Allergy (Verified 02/10/16 11:47) Past Medical History - General Information source: Patient - Social History Smoking Status: Never Smoker Chew tobacco use (# tins/day): No Frequency of alcohol use: Rare Drug Abuse: None Lives with: Family Family History: Reviewed & Not Pertinent - Past Medical History Cardiac Medical History: Reports: Hx Hypertension Pulmonary Medical History: Reports: Hx Asthma Endocrine Medical History: Reports: Hx Diabetes Mellitus Type 2 Renal/ Medical History: Denies: Hx Peritoneal Dialysis Psychiatric Medical History: Reports: Hx Depression Past Surgical History: Reports: Hx Oral Surgery, Other - Oral surgery, Esure contraceptive device - Immunizations Immunizations up to date: Yes Hx Diphtheria, Pertussis, Tetanus Vaccination: Yes Review of Systems - Review of Systems Constitutional: No symptoms reported EENT: No symptoms reported Cardiovascular: No symptoms reported Respiratory: No symptoms reported Gastrointestinal: No symptoms reported Genitourinary: No symptoms reported Female Genitourinary: See HPI Musculoskeletal: No symptoms reported Skin: No symptoms reported Hematologic/Lymphatic: No symptoms reported Neurological/Psychological: No symptoms reported Physical Exam - Vital signs Vitals: Temp Pulse Resp BP Pulse Ox 97.7 F 105 H 18 148/79 H 97 03/09/16 05:50 03/09/16 05:50 03/09/16 05:50 03/09/16 05:50 03/09/16 05:50 Interpretation: Normal - General General appearance: Appears well, Alert In distress: None - HEENT Head: Normocephalic, Atraumatic Eyes: Normal Pupils: PERRL Neck: Supple - Respiratory Respiratory status: No respiratory distress Chest status: Nontender Breath sounds: Normal Chest palpation: Normal - Cardiovascular Rhythm: Regular Heart sounds: Normal auscultation Murmur: No - Abdominal Inspection: Normal Distension: No distension Bowel sounds: Normal Tenderness: Nontender. No: Tender Organomegaly: No organomegaly - Genitourinary External exam: Normal Female anatomy: 1 - multiple painful ulcerations in whole area, also isolated peripheral erythema/lesions that looks like yeast rash - Back Back: Normal, Nontender - Extremities General upper extremity: Normal inspection, Nontender, Normal color, Normal ROM , Normal temperature General lower extremity: Normal inspection, Nontender, Normal color, Normal ROM , Normal temperature, Normal weight bearing. No: Annita's sign - Neurological Neuro grossly intact: Yes Cognition: Normal Orientation: AAOx4 [place] Coma Scale Eye Opening: Spontaneous [place] Coma Scale Verbal: Oriented Hector Coma Scale Motor: Obeys Commands [place] Coma Scale Total: 15 Speech: Normal Motor strength normal: LUE, RUE, LLE, RLE Sensory: Normal - Psychological Associated symptoms: Normal affect, Normal mood - Skin Skin Temperature: Warm Skin Moisture: Dry Skin Color: Normal Notes: see above, no groin lymph nodes Course - Vital Signs Vital signs: Temp Pulse Resp BP Pulse Ox 97.9 F 111 H 18 125/71 96 03/09/16 08:46 03/09/16 08:46 03/09/16 08:46 03/09/16 08:46 03/09/16 08:46 - Laboratory Laboratory results interpreted by me: 03/09/16 06:30 Urine Protein 30 H Urine Glucose (UA) >=500 H Urine Ketones TRACE H Ur Leukocyte Esterase MODERATE H Urine Ascorbic Acid 40 H Discharge - Discharge Clinical Impression: labial and perianal ulcerations Urinary tract infection Qualifiers: Urinary tract infection type: acute cystitis Hematuria presence: without hematuria Qualified Code(s): N30.00 - Acute cystitis without hematuria Condition: Good Disposition: HOME, SELF-CARE Instructions: Urinary Tract Infection ([facility]), Genital Herpes ([facility]), Acyclovir ( [facility]), Vaginal Yeast Infection ([facility]), Oral Narcotic Medication ([facility]), Ciprofloxacin ([facility]) Additional Instructions: stiz bath with soothing oatmeal additive to bath vaseline to tissue may be ssothing topical nystatin cream for yeast dry skin with cool hair baler keep open to air as much as possible call me [phone] in several hours for all the lab results see your primary care doctor if persists keep your glucose under control to er if worse Prescriptions: Acyclovir [Acyclovir 400 mg Tablet] 400 mg PO TID #30 tablet Ciprofloxacin HCl [Cipro 500 mg Tablet] 500 mg PO BID #6 tablet Fluconazole [Diflucan] 150 mg PO ONCE PRN #1 tablet PRN Reason: Nystatin 30 gm TP TID #1 cream..g. Oxycodone HCl/Acetaminophen [Percocet 5-325 mg Tablet] 1 - 2 tab PO ASDIR PRN # 15 tablet PRN Reason: Forms: Return to Work Referrals: AV FARFAN MD [Primary Care Provider] - Follow up as needed
[2016-03-09 07:20] LABS: APPEARANCE,URINE CLOUDY; BILIRUBIN,URINE NEGATIVE (NEGATIVE); GLUCOSE, URINE >=500 mg/dL (NEGATIVE); KETONES,URINE TRACE mg/dL (NEGATIVE); LEUKOCYTE ESTERASE,URINE MODERATE (NEGATIVE); NITRITE,URINE NEGATIVE (NEGATIVE); PROTEIN,URINE 30 mg/dL (NEGATIVE); URINE SPECIFIC GRAVITY 1.029; UROBILINOGEN,URINE NEGATIVE mg/dL (<2.0)
[2016-03-09] MEDS ORDERED: LIDOCAINE 2% JELLY 30 ML TUBE TOP ONE (08:12)
[2016-03-09 08:48] VITALS: BP 125/71
[2016-03-09 10:05] LABS: CHLAM PCR NOT DETECTED (NOT DETECT)
== END 2016-03-09 09:10 | disposition home or self-care (01) ==
LOC: ER 05:46
DX: N76.6 Ulceration of vulva (principal); K62.6 Ulcer of anus and rectum; N30.00 Acute cystitis without hematuria; E11.9 Type 2 diabetes mellitus without complications; I10 Essential (primary) hypertension
CPT/HCPCS: 81001; 87070; 87077; 87086; 87088; 87186; 87205; 87210; 87250; 87491; 87591; 99283

== ENCOUNTER 2017-02-27 11:08 | Emergency (ER) | payer BC ==
--- NOTE | 2017-02-27 11:24 | ER Document Report ---
ED General - General Chief Complaint: Fall Stated Complaint: FACIAL TRAUMA Time Seen by Provider: 02/27/17 11:24 Information source: Patient, Relative TRAVEL OUTSIDE OF THE [place] IN LAST 30 DAYS: No - HPI Patient complains to provider of: Air-conditioning unit fell 10 feet on patient' s face. Onset: Just prior to arrival Onset/Duration: Sudden Quality of pain: Throbbing Severity: Severe Pain Level: 4 Associated symptoms: Other - LOC few seconds - Related Data Allergies/Adverse Reactions: No Known Allergies Allergy (Verified 02/10/16 11:47) Past Medical History - General Information source: Relative - Social History Smoking Status: Current Every Day Smoker Chew tobacco use (# tins/day): No Frequency of alcohol use: Occasional Drug Abuse: None Lives with: Family Family History: Reviewed & Not Pertinent Patient has suicidal ideation: No Patient has homicidal ideation: No - Past Medical History Cardiac Medical History: Reports: Hx Hypertension Pulmonary Medical History: Reports: Hx Asthma Other: hearing aids Neurological Medical History: Reports: None Endocrine Medical History: Reports: Hx Diabetes Mellitus Type 2 Renal/ Medical History: Reports: None. Denies: Hx Peritoneal Dialysis Malignancy Medical History: Reports: None Psychiatric Medical History: Reports: Hx Depression Past Surgical History: Reports: Hx Oral Surgery, Other - Oral surgery, Esure contraceptive device - Immunizations Immunizations up to date: Yes Hx Diphtheria, Pertussis, Tetanus Vaccination: Yes Review of Systems - Review of Systems Constitutional: No symptoms reported EENT: Nose pain Cardiovascular: No symptoms reported Respiratory: No symptoms reported Gastrointestinal: No symptoms reported Genitourinary: No symptoms reported Female Genitourinary: No symptoms reported Musculoskeletal: No symptoms reported Skin: Other - Reason nasal bridge Neurological/Psychological: No symptoms reported Physical Exam - Vital signs Vitals: Resp BP Pulse Ox 18 128/84 H 99 02/27/17 11:22 02/27/17 11:22 02/27/17 11:22 - Notes Notes: PHYSICAL EXAMINATION: GENERAL: Well-appearing, well-nourished and in no acute distress. HEAD: Atraumatic, normocephalic. EYES: Pupils equal round and reactive to light, extraocular movements intact, conjunctiva are normal. ENT: Nares patent, oropharynx clear without exudates. Moist mucous membranes. bi Lateral hearing aid. No hemotympanum when examined and without hearing aids. No malocclusion. No dental injury. NECK: Normal range of motion, supple without lymphadenopathy (performed neck exam after negative CT of the C-spine resulted) LUNGS: Breath sounds clear to auscultation bilaterally and equal. No wheezes rales or rhonchi. HEART: Regular rate and rhythm without murmurs ABDOMEN: Soft, nontender, nondistended abdomen. No guarding, no rebound. No masses appreciated. Female : deferred Musculoskeletal: Normal range of motion left shoulder. Patient does have pain with palpation and movement. There is no gross deformity. There is no signs of dislocation. There is no signs of clavicular fracture. Patient's left upper extremity is neurovascularly intact, no pitting or edema. No cyanosis. NEUROLOGICAL: Cranial nerves grossly intact. Normal speech, normal gait. Normal sensory, motor exams PSYCH: Normal mood, normal affect. SKIN: Warm, Dry, normal turgor, no rashes or lesions noted. Course - Re-evaluation Re-evalutation: 02/27/17 13:33 CT of the head neck and facial bones are without any acute findings. Left shoulder is negative for acute findings. Was ambulatory to the bathroom without difficulty. 02/27/17 13:41 Her tetanus is up-to-date. She also wants a work note for 3 days which I found reasonable - Vital Signs Vital signs: Temp Pulse Resp BP Pulse Ox 97.9 F 20 128/84 H 98 02/27/17 11:23 02/27/17 13:00 02/27/17 11:22 02/27/17 13:00 - Laboratory Laboratory results interpreted by me: 02/27/17 12:05 POC Glucose 243 H - Diagnostic Test Radiology reviewed: Image reviewed, Reports reviewed Radiology results interpreted by me: 02/27/17 13:[address] head neck facial bones and left shoulder Discharge - Discharge Clinical Impression: Facial contusion, Left anterior shoulder pain, Abrasion of nose, initial encounter Condition: Stable Disposition: HOME, SELF-CARE Instructions: Contusion ([facility]), Shoulder Injury ([facility]), Concussion ([facility]) Additional Instructions: The primary medical doctor in the next 1 or 2 days. If you do not have wanted to give you a referral to the on-call medical doctor. Please take medication as prescribed. You can use ice to your nasal bridge if it helps with the pain and will also decrease swelling. Return to the emergency department if you have any worsening of symptoms Prescriptions: Hydrocodone/Acetaminophen [[place] 5-325 mg Tablet] 1 tab PO Q6 3 Days #12 tablet Referrals: IAN MARIE MD [ACTIVE STAFF] - Follow up in 3-5 days
--- NOTE | 2017-02-27 11:55 | RADIOLOGY REPORT (SQ) ---
EXAM DESCRIPTION: CT HEAD WITHOUT COMPLETED DATE/TIME: 02/27/2017 11:48 am REASON FOR STUDY: fall COMPARISON: None. TECHNIQUE: Axial images acquired through the brain without intravenous contrast. Images reviewed wi th bone, brain and subdural windows. Images stored on PACS. All CT scanners at this facility use dose modulation, iterative reconstruction, and/or weight based d osing when appropriate to reduce radiation dose to as low as reasonably achievable (ALARA). [facility]: Dose Right [facility]: CareDose [facility]: Dose Right [facility]: Teradose 4D [facility]: [employer] RADIATION DOSE: CT Rad equipment meets quality standard of care and radiation dose reduction techniq ues were employed. CTDIvol: 64.6 mGy. DLP: 1163 mGy-cm. mGy. LIMITATIONS: None. FINDINGS: VENTRICLES: Normal size and contour. CEREBRUM: No masses. No hemorrhage. No midline shift. No evidence for acute infarction. Normal gra y/white matter differentiation. No areas of low density in the white matter. CEREBELLUM: No masses. No hemorrhage. No alteration of density. No evidence for acute infarction. EXTRAAXIAL SPACES: No fluid collections. No masses. ORBITS AND GLOBE: No intra- or extraconal masses. Normal contour of globe without masses. CALVARIUM: No fracture. PARANASAL SINUSES: No fluid or mucosal thickening. SOFT TISSUES: No mass or hematoma. OTHER: No other significant finding. IMPRESSION: NORMAL BRAIN CT WITHOUT CONTRAST. EVIDENCE OF ACUTE STROKE: NO. COMMENT: Quality ID # [id number]: Final reports with documentation of one or more dose reduction techniques (e.g., Automated exposure control, adjustment of the mA and/or kV according to patient size, use of iterative reconstruction technique) TECHNICAL DOCUMENTATION: JOB ID: [id number]- All Rights Reserved
--- NOTE | 2017-02-27 11:56 | RADIOLOGY REPORT (SQ) ---
EXAM DESCRIPTION: CT CERVICAL SPINE WITHOUT COMPLETED DATE/TIME: 02/27/2017 11:48 am REASON FOR STUDY: fall COMPARISON: None. TECHNIQUE: Axial images acquired through the cervical spine without intravenous contrast. Images re viewed with lung, soft tissue and bone windows. Reconstructed coronal and sagittal MPR images review ed. Images stored on PACS. All CT scanners at this facility use dose modulation, iterative reconstruction, and/or weight based d osing when appropriate to reduce radiation dose to as low as reasonably achievable (ALARA). [facility]: Dose Right [facility]: CareDose [facility]: Dose Right [facility]: Teradose 4D [facility]: [employer] RADIATION DOSE: CT Rad equipment meets quality standard of care and radiation dose reduction techniq ues were employed. CTDIvol: 27.0 mGy. DLP: 485 mGy-cm. mGy. LIMITATIONS: None. FINDINGS: ALIGNMENT: Anatomic. MINERALIZATION: Normal. VERTEBRAL BODIES: No fractures or dislocation. DISCS: No significant disc disease. FACETS, LATERAL MASSES, POSTERIOR ELEMENTS: No fractures. No dislocation. No acute findings. HARDWARE: None in the spine. VISUALIZED RIBS: No fractures. LUNG APICES AND SOFT TISSUES: No significant or acute findings. OTHER: No other significant finding. IMPRESSION: NO ACUTE OR SIGNIFICANT FINDINGS IN THE CERVICAL SPINE. TECHNICAL DOCUMENTATION: JOB ID: [id number] Quality ID # [id number]: Final reports with documentation of one or more dose reduction techniques (e.g., Au tomated exposure control, adjustment of the mA and/or kV according to patient size, use of iterative reconstruction technique) 2010 [employer]- All Rights Reserved
[2017-02-27] MEDS ORDERED: HYDROCODONE/ACETAMINOPHEN 5-325 MG TABLET PO ONE (12:08)
--- NOTE | 2017-02-27 12:37 | RADIOLOGY REPORT (SQ) ---
EXAM DESCRIPTION: CT FACIAL AREA WITHOUT COMPLETED DATE/TIME: 02/27/2017 12:31 pm REASON FOR STUDY: AC unit fell on face COMPARISON: None. TECHNIQUE: Noncontrasted images through the facial bones and orbits windowed for bone and soft tissu e. Additional coronal and sagittal reconstructed images reviewed. All images stored on PACS. All CT scanners at this facility use dose modulation, iterative reconstruction, and/or weight based d osing when appropriate to reduce radiation dose to as low as reasonably achievable (ALARA). [facility]: Dose Right [facility]: CareDose [facility]: Dose Right [facility]: Teradose 4D [facility]: [employer] RADIATION DOSE: CT Rad equipment meets quality standard of care and radiation dose reduction techniq ues were employed. CTDIvol: 30.4 mGy. DLP: 519 mGy-cm. mGy. LIMITATIONS: None. FINDINGS: FACIAL BONES: No fracture or bone lesion. ORBITS: Intact. No fracture. Symmetric intact globes and retroorbital soft tissues. PARANASAL SINUSES: Mild diffuse paranasal sinus mucosal thickening without air-fluid levels. SOFT TISSUES: No mass or edema. INFERIOR BRAIN: Limited view. No acute findings. OTHER: No other significant finding. IMPRESSION: MILD CHRONIC PARANASAL SINUS DISEASE. NO FRACTURE. TECHNICAL DOCUMENTATION: JOB ID: [id number] Quality ID # [id number]: Final reports with documentation of one or more dose reduction techniques (e.g., Au tomated exposure control, adjustment of the mA and/or kV according to patient size, use of iterative reconstruction technique) 2010 [employer]- All Rights Reserved
--- NOTE | 2017-02-27 12:57 | RADIOLOGY REPORT (SQ) ---
EXAM DESCRIPTION: SHOULDER LEFT 2 OR MORE VIEWS COMPLETED DATE/TIME: 02/27/2017 12:42 pm REASON FOR STUDY: trauma COMPARISON: None. NUMBER OF VIEWS: Three views. TECHNIQUE: Internal rotation, external rotation, and Y view images acquired of the left shoulder. LIMITATIONS: None. FINDINGS: MINERALIZATION: Normal. BONES: No acute fracture or dislocation. No worrisome bone lesions. JOINTS: No dislocation. VISUALIZED LUNGS AND RIBS: No pneumothorax. No rib fracture. SOFT TISSUES: No radiopaque foreign body. OTHER: No other significant finding. IMPRESSION: NEGATIVE STUDY OF THE LEFT SHOULDER. NO RADIOGRAPHIC EVIDENCE OF ACUTE INJURY. TECHNICAL DOCUMENTATION: JOB ID: [id number] [employer]- All Rights Reserved
[2017-02-27] MEDS ORDERED: BACITRACIN ZINC OINTMENT 15 GM TP ONE (13:29)
[2017-02-27 13:52] VITALS: BP 108/67
== END 2017-02-27 14:15 | disposition home or self-care (01) ==
LOC: ER 11:08
DX: S00.83XA Contusion of other part of head, initial encounter (principal); S00.31XA Abrasion of nose, initial encounter; M25.512 Pain in left shoulder; F17.200 Nicotine dependence, unspecified, uncomplicated; W22.8XXA Striking against or struck by other objects, initial encounter
CPT/HCPCS: 99284; 82962; 73030; 70450; 70486; 72125; L0120; J3490

== ENCOUNTER 2019-07-27 12:08 | Emergency (ER) | payer BC ==
[2019-07-27 12:12] VITALS: BP 141/67
--- NOTE | 2019-07-27 12:59 | ER Document Report ---
ED Medical Screen (RME) - General Chief Complaint: Foreign Body in Ear Stated Complaint: LEFT EAR INJURY Time Seen by Provider: 07/27/19 12:57 Notes: Patient is a 59-year-old female who presents to the emergency department with a hearing aid bud in her left ear. Patient states that she fell asleep with her hearing aid in her left ear. She went to her primary care provider today and he attempted to take it out, but could not get it out. He then referred her to the emergency department. Exam: Hearing aid bud noted to left external auditory canal. I have greeted and performed a rapid initial assessment of this patient. A comprehensive ED assessment and evaluation of the patient, analysis of test results and completion of medical decision making process will be conducted by an additional ED providers. TRAVEL OUTSIDE OF THE [place] IN LAST 30 DAYS: No - Related Data Allergies/Adverse Reactions: No Known Allergies Allergy (Verified 02/10/16 11:47) Past Medical History - Past Medical History Cardiac Medical History: Reports: Hx Hypertension Pulmonary Medical History: Reports: Hx Asthma Endocrine Medical History: Reports: Hx Diabetes Mellitus Type 2 Renal/ Medical History: Denies: Hx Peritoneal Dialysis Psychiatric Medical History: Reports: Hx Depression Past Surgical History: Reports: Hx Oral Surgery, Other - Oral surgery, Esure contraceptive device - Immunizations Immunizations up to date: Yes Hx Diphtheria, Pertussis, Tetanus Vaccination: Yes Physical Exam - Vital signs Vitals: Temp Pulse Resp BP Pulse Ox 97.7 F 98 18 141/67 H 98 07/27/19 12:11 07/27/19 12:11 07/27/19 12:11 07/27/19 12:11 07/27/19 12:11 Course - Vital Signs Vital signs: Temp Pulse Resp BP Pulse Ox 97.7 F 98 18 141/67 H 98 07/27/19 12:11 07/27/19 12:11 07/27/19 12:11 07/27/19 12:11 07/27/19 12:11
[2019-07-27] MEDS ORDERED: LIDOCAINE 2% INJ-PF (20 MG/ML) 10 ML AMPUL INFIL ONE (13:01)
--- NOTE | 2019-07-27 13:23 | ER Document Report ---
HPI - HPI Patient complains to provider of: foreign body left ear Time Seen by Provider: 07/27/19 12:57 Pain Level: 3 Context: 59-year-old female presents emergency room with foreign body to left ear. Patient states she got part of her hearing aid stuck on Wednesday. Went to see her primary care physician who tried multiple times to remove the foreign body without success. Was referred to the emergency room for further evaluation. She offers no other concerns or complaints. Associated Symptoms: None Exacerbated by: Denies Relieved by: Denies Similar symptoms previously: No Recently seen / treated by doctor: Yes - PMD earlier today - ROS Systems Reviewed and Negative: Yes All other systems reviewed and negative - EENT EENT: REPORTS: Ear Pain Notes: Foreign body left ear canal - NEURO Neurology: DENIES: Headache - RESPIRATORY Respiratory: DENIES: Trouble Breathing - REPRODUCTIVE Reproductive: DENIES: : - DERM Skin Color: Normal Skin Problems: None Past Medical History - General Information source: Patient - Social History Smoking Status: Never Smoker Chew tobacco use (# tins/day): No Frequency of alcohol use: Rare Drug Abuse: None Family History: Reviewed & Not Pertinent Patient has homicidal ideation: No - Past Medical History Cardiac Medical History: Reports: Hx Hypertension Pulmonary Medical History: Reports: Hx Asthma Endocrine Medical History: Reports: Hx Diabetes Mellitus Type 2 Renal/ Medical History: Denies: Hx Peritoneal Dialysis Psychiatric Medical History: Reports: Hx Depression Past Surgical History: Reports: Hx Oral Surgery, Other - Oral surgery, Esure contraceptive device - Immunizations Immunizations up to date: Yes Hx Diphtheria, Pertussis, Tetanus Vaccination: Yes Vertical Provider Document - CONSTITUTIONAL Agree With Documented VS: Yes Exam Limitations: No Limitations General Appearance: Mild Distress - INFECTION CONTROL TRAVEL OUTSIDE OF THE [place] IN LAST 30 DAYS: No - HEENT HEENT: Atraumatic, Normocephalic. negative: Tympanic Membrane Red, Tympanic Membrane Bulging - NECK Neck: Normal Inspection. negative: Lymphadenopathy-Left, Lymphadenopathy-Right Notes: Obvious foreign body noted into left ear canal - RESPIRATORY Respiratory: Breath Sounds Normal, No Respiratory Distress, Chest Non-Tender. negative: Rales, Rhonchi, Wheezing - CARDIOVASCULAR Cardiovascular: Regular Rate, Regular Rhythm, No Murmur - MUSCULOSKELETAL/EXTREMETIES Musculoskeletal/Extremeties: FROM, Non-Tender - NEURO Level of Consciousness: Awake, Alert Motor/Sensory: No Motor Deficit, No Sensory Deficit - DERM Integumentary: Warm, Dry, No Rash Course - Re-evaluation Re-evalutation: 07/27/19 13:28 After removal of foreign body there is a moderate amount of irritation to the left outer ear canal is erythematous. There is no active discharge or draining. There are no cuts or lacerations noted. Counseled patient to use eardrops as prescribed. Recheck with her primary care physician in 2 to 3 days. Patient was given strict return to the emergency room guidelines. Return for any new or worsening symptoms. All questions were answered. Patient verbalized understanding and agrees with plan of care. - Vital Signs Vital signs: Temp Pulse Resp BP Pulse Ox 97.7 F 98 18 141/67 H 98 07/27/19 12:11 07/27/19 12:11 07/27/19 12:11 07/27/19 12:11 07/27/19 12:11 Procedures - Additional Procedures foreign body removal Time performed: 13:18 Notes: 07/27/19 13:19 Able to remove piece of hearing aid out of left ear canal with forceps. Full removal of foreign body. Outer ear canal with erythema. No active discharge or draining noted. Discharge - Discharge Clinical Impression: Foreign body in left ear, initial encounter Left otitis externa Qualifiers: Otitis externa type: unspecified type Chronicity: acute Qualified Code(s): H60.502 - Unspecified acute noninfective otitis externa, left ear Condition: Stable Disposition: HOME, SELF-CARE Instructions: Use of Ear Drops ([facility]), Foreign Body ([facility]) Additional Instructions: We were able to fully remove the foreign body from the left ear canal. Use eardrops as prescribed. Recheck with primary care physician 2 to 3 days. Return for any new or worsening symptoms. Prescriptions: Neomy Sulf/Polymyx B Sulf/Hc [Cortisporin Otic Susp] 4 drop LFT_EAR TID #1 bottle
== END 2019-07-27 13:28 | disposition home or self-care (01) ==
LOC: ER 12:08
DX: T16.2XXA Foreign body in left ear, initial encounter (principal); X58.XXXA Exposure to other specified factors, initial encounter; I10 Essential (primary) hypertension; J45.909 Unspecified asthma, uncomplicated; E11.9 Type 2 diabetes mellitus without complications
CPT/HCPCS: 99282